=== PATIENT | female | born 1995 | race Caucasian/White ===

== ENCOUNTER 2017-03-10 13:15 | Emergency (ER) | payer SELFPAY ==
[~2017-03-10] VITALS: Ht 167.6 cm; Wt 72.7 kg
[~2017-03-10 13:15] MED LIST: ALBU2.5V5 NEB; ALBU8.5H8 IH; AMOX500C PO; BENZ100C PO; CEPH-264 PO; ONDA4TAB7 PO; PRED50TA PO; PREN-2 PO
[2017-03-10 13:26] VITALS: BP 106/68
[2017-03-10] MEDS ORDERED: HYDR-971 PO (13:53)
[2017-03-10] MEDS ORDERED: AMOX-260 PO (13:53)
--- NOTE | 2017-03-10 13:53 | PHYS DOC ---
Past History Past Medical History: Asthma Past Surgical History: Other Smoking: Less than 1pk/day Alcohol Use: Occasionally Drug Use: None Adult General Chief Complaint Chief Complaint: DENTAL PROBLEM HPI HPI Patient is a 21-year-old female who complains of toothache. Her tooth had been bothering her some but starting yesterday her toothache became much more severe and kept her up during the night last night. She called her dentist's office and they weren't able to see her so she came in here. She had a root canal a while back and she knows they gave her amoxicillin and she wondered if she could have that again. She doesn't know the specific injury to this tooth but has a "hole in it". Review of Systems Review of Systems Constitutional: Denies fever or chills [] Neurologic: Toothache hurts all the way up the side of her nose and causes her to have a headache over her right eye Allergies Allergies Allergies Coded Allergies Type Severity Reaction Last Updated Verified shrimp Allergy Severe Hives 12/27/15 Yes Physical Exam Physical Exam Constitutional: Well developed, well nourished, no acute distress, non-toxic appearance. Alert, mentating normally. HENT: Normocephalic, atraumatic, bilateral external ears normal, oropharynx moist, no oral exudates, right maxillary canine has a cavity in the posterior aspect. Teeth are generally in good condition. There is no evidence of periapical abscess, no drainage. Nose normal. Eyes: conjunctiva normal, no discharge. [] Neck: Normal range of motion, no tenderness, no lymphadenopathy or masses, supple, no stridor. [] Skin: Warm, dry, no erythema, no rash. [] Neurologic: Alert and oriented X 3, normal motor function, normal sensory function, no focal deficits noted. [] Current Patient Data Vital Signs Vital Signs Date Time Temp Pulse Resp B/P (MAP) Pulse Ox O2 Delivery O2 Flow Rate FiO2 03/10/17 13:26 98.7 72 20 96 Room Air EKG EKG [] Radiology/Procedures Radiology/Procedures [] Course & Med Decision Making Course & Med Decision Making Pertinent Labs and Imaging studies reviewed. (See chart for details) 21-year-old female presents with a severe tooth pain. She has a tooth with a large cavity, by history her tooth pain is probably due to this cavity affecting the nerve. I urged her to see a dentist as soon as possible, advised her to call for an appointment as soon as she leaves the emergency department. Advised her we will not be giving her any more pain pills after today and that she really must see a dentist for definitive care. [] [place] Disclaimer Dragon Disclaimer This chart was dictated in whole or in part using Voice Recognition software in a busy, high-work load, and often noisy Emergency Department environment. It may contain unintended and wholly unrecognized errors or omissions. Departure Departure: Impression: Primary Impression: Pain due to dental caries Disposition: HOME, SELF-CARE Condition: STABLE Referrals: PCP,MERNA (PCP) Patient Instructions: Dental Pain, [id number] Additional Instructions: As we discussed, it's important that you call and get a dentist appointment for care of your tooth. Medicines prescribed today will only temporary relief, you need to see a dentist immediately. Scripts Hydrocodone Bit/Acetaminophen (NORCO 5-325 TABLET) 1 Each Tablet 1-2 TAB PO Q4-6HRS for dental pain, #8 TAB Prov: DAVID SILVA MD 03/10/17 Amoxicillin (AMOXICILLIN) 250 Mg Capsule 1 CAP PO TID for dental, #21 CAP Prov: DAVID SILVA MD 03/10/17 DAVID SILVA MD March 10, 2017 13:53
== END 2017-03-10 14:04 | disposition home or self-care (01) ==
LOC: ER 13:15
DX: K02.9 Dental caries, unspecified (principal); J45.909 Unspecified asthma, uncomplicated; F17.200 Nicotine dependence, unspecified, uncomplicated; Z91.013 Allergy to seafood
CPT/HCPCS: 99283

== ENCOUNTER 2017-04-28 19:25 | Emergency (ER) | payer SELFPAY ==
[~2017-04-28] VITALS: Ht 167.6 cm; Wt 69.1 kg
[~2017-04-28 19:25] MED LIST changes: +AMOX-260 PO; +HYDR-971 PO
[2017-04-28 19:37] VITALS: BP 118/63
--- NOTE | 2017-04-28 20:17 | PHYS DOC ---
Past History Past Medical History: Asthma Past Surgical History: Other Smoking: Less than 1pk/day Alcohol Use: Rarely Drug Use: None Adult General Chief Complaint Chief Complaint: ABDOMINAL PAIN HPI HPI Patient is a 21 year old female who presents with complaint of upper abdominal pain. Patient states that she has been having pain off and on for the last 3-4 weeks but states that over the past week it has become more intense and more frequent. Patient states that her pain stays in the upper middle portion of her abdomen. Patient states that she often is awoken at nighttime due to the pain. Patient states that the pain is sharp. Patient rates her pain to me on my evaluation is 8 out of 10. Patient denies any associated nausea, vomiting, fever , or change in stooling. Patient states that she does not know when her last menstrual period took place that she is currently on control. The patient has tried taking ibuprofen for symptoms with no relief. Patient has had similar pain in the past. Patient states that she receive medical evaluation but did not receive an answer as to what was causing her pain. She was given pain medication which seemed to help it go away at that time. Review of Systems Review of Systems Constitutional: Denies fever or chills [] Eyes: Denies change in visual acuity, redness, or eye pain [] HENT: Denies nasal congestion or sore throat [] Respiratory: Denies cough or shortness of breath [] Cardiovascular: Denies chest pain or edema [] GI: Abdominal pain, denies nausea, vomiting, bloody stools or diarrhea [] : Denies dysuria or hematuria [] Musculoskeletal: Denies back pain or joint pain [] Integument: Denies rash or skin lesions [] Neurologic: Denies headache, focal weakness or sensory changes [] Current Medications Current Medications Current Medications Medications (Trade) Dose Ordered Sig/Len Start Time Stop Time Status Last Admin Dose Admin Acetaminophen/ Hydrocodone Bitart (Lortab 5/325) 1 tab 1X ONCE 04/28/17 20:30 04/28/17 20:31 Dicyclomine HCl (Bentyl) 20 mg 1X ONCE 04/28/17 20:30 04/28/17 20:31 Famotidine (Pepcid) 20 mg 1X ONCE 04/28/17 20:30 04/28/17 20:31 Allergies Allergies Allergies Coded Allergies Type Severity Reaction Last Updated Verified shrimp Allergy Severe Hives 12/27/15 Yes Physical Exam Physical Exam Constitutional: Well developed, well nourished, no acute distress, non-toxic appearance. [] HENT: Normocephalic, atraumatic, bilateral external ears normal, oropharynx moist, no oral exudates, nose normal. [] Eyes: PERRLA, EOMI, conjunctiva normal, no discharge. [] Neck: Normal range of motion, no tenderness, supple, no stridor. [] Cardiovascular:Heart rate regular rhythm, no murmur [] Lungs & Thorax: Bilateral breath sounds clear to auscultation [] Abdomen: Bowel sounds normal, soft, mild midepigastric tenderness to palpation with no guarding or rebound tenderness, negative Stoner sign, no tenderness over McBurney's site, no masses, no pulsatile masses. [] Skin: Warm, dry, no erythema, no rash. [] Back: No tenderness, no CVA tenderness. [] Extremities: No tenderness, no cyanosis, no clubbing, ROM intact, no edema. [] Neurologic: Alert and oriented X 3, normal motor function, normal sensory function, no focal deficits noted. [] Current Patient Data Vital Signs Vital Signs Date Time Temp Pulse Resp B/P (MAP) Pulse Ox O2 Delivery O2 Flow Rate FiO2 04/28/17 19:37 98.7 85 20 96 Room Air Lab Results Laboratory Tests Test 04/28/17 20:18 04/28/17 20:29 White Blood Count 7.3 x10^3/uL Red Blood Count 4.99 x10^6/uL Hemoglobin 14.0 g/dL Hematocrit 41.7 % Mean Corpuscular Volume 84 fL Mean Corpuscular Hemoglobin 28 pg Mean Corpuscular Hemoglobin Concent 34 g/dL Red Cell Distribution Width 13.2 % Platelet Count 208 x10^3/uL Neutrophils (%) (Auto) 41 % Lymphocytes (%) (Auto) 39 % Monocytes (%) (Auto) 6 % Eosinophils (%) (Auto) 12 % Basophils (%) (Auto) 1 % Neutrophils # (Auto) 3.0 x10^3uL Lymphocytes # (Auto) 2.8 x10^3/uL Monocytes # (Auto) 0.4 x10^3/uL Eosinophils # (Auto) 0.9 x10^3/uL Basophils # (Auto) 0.1 x10^3/uL Urine Collection Type Unknown Urine Color Yellow Urine Clarity Hazy Urine pH 5.5 Urine Specific [place] >=1.030 Urine Protein 30 mg/dl Urine Glucose (UA) Neg mg/dL Urine Ketones (Stick) Trace mg/dL Urine Blood Trace Urine Nitrite Neg Urine Bilirubin Neg Urine Urobilinogen Dipstick 0.2 mg/dL Urine Leukocyte Esterase Neg Urine RBC 3-5 /HPF Urine WBC 5-10 /HPF Urine Squamous Epithelial Cells Many /LPF Urine Bacteria Few /HPF Urine Hyaline Casts Few /HPF Urine Mucus Marked /LPF Sodium Level 144 mmol/L Potassium Level 3.6 mmol/L Chloride Level 108 mmol/L Carbon Dioxide Level 28 mmol/L Anion Gap 8 Blood Urea Nitrogen 9 mg/dL Creatinine 0.7 mg/dL Estimated GFR (Cockcroft-Gault) 104.6 BUN/Creatinine Ratio 13 Glucose Level 99 mg/dL Calcium Level 8.3 mg/dL Total Bilirubin 0.3 mg/dL Aspartate Amino Transf (AST/SGOT) 14 U/L Alanine Aminotransferase (ALT/SGPT) 20 U/L Alkaline Phosphatase 80 U/L Total Protein 7.3 g/dL Albumin 3.8 g/dL Albumin/Globulin Ratio 1.1 Bedside Urine HCG, Qualitative hcg negative Current Medications Medications (Trade) Dose Ordered Sig/Len Route PRN Reason Start Time Stop Time Status Last Admin Dose Admin Acetaminophen/ Hydrocodone Bitart (Lortab 5/325) 1 tab 1X ONCE PO 04/28/17 20:30 04/28/17 20:31 DC 04/28/17 20:30 Dicyclomine HCl (Bentyl) 20 mg 1X ONCE PO 04/28/17 20:30 04/28/17 20:31 DC 04/28/17 20:30 Famotidine (Pepcid) 20 mg 1X ONCE PO 04/28/17 20:30 04/28/17 20:31 DC 04/28/17 20:30 EKG EKG Not performed [] Radiology/Procedures Radiology/Procedures Not performed [] Course & Med Decision Making Course & Med Decision Making Pertinent Labs and Imaging studies reviewed. (See chart for details) The patient was given Bentyl, [place], and Pepcid in the emergency department. Patient's lab work is unremarkable with the exception of concentrated urine representing likely mild dehydration. The patient's symptoms have improved at this time. The patient does not appear to have clinical or lab evidence of acute surgical process of the abdomen which would include cholecystitis or appendicitis. The patient's source of complaint is likely intraluminal and gastritis versus peptic ulcer disease remain in the differential. The patient will continue on Pepcid, Bentyl, and Manchester for treatment of symptoms. I have referred the patient to Dr. Garcia of gastroenterology for follow-up in one to 2 weeks if symptoms persist. Advised return to emergency department for any worsening symptoms. Patient voiced understanding and in agreement with treatment plan. Dragon Disclaimer Dragon Disclaimer This chart was dictated in whole or in part using Voice Recognition software in a busy, high-work load, and often noisy Emergency Department environment. It may contain unintended and wholly unrecognized errors or omissions. Departure Departure: Impression: Primary Impression: Abdominal pain Disposition: HOME, SELF-CARE Condition: IMPROVED Referrals: PCPMERNA (PCP) MARION GARCIA MD Patient Instructions: Abdominal Pain (Nonspecific) Additional Instructions: Follow-up with Dr. Garcia of gastroenterology in 1-2 weeks if symptoms have not improved. Return to the emergency department for any worsening symptoms. Scripts Dicyclomine Hcl (BENTYL) 10 Mg Capsule 1 CAP PO TID, #90 CAP 0 Refills Prov: IRWIN MILLER MD 04/28/17 Famotidine (PEPCID) 20 Mg Tablet 1 TAB PO BID, #30 TAB 0 Refills Prov: IRWIN MILLER MD 04/28/17 Hydrocodone Bit/Acetaminophen (NORCO 5-325 TABLET) 1 Each Tablet 1 TAB PO Q4-6HRS Y for PAIN, #20 TAB Prov: IRWIN MILLER MD 04/28/17 Problem Qualifiers Primary Impression: Abdominal pain Abdominal location: epigastric Qualified Codes: R10.13 - Epigastric pain IRWIN MILLER MD Apr 28, 2017 20:17
[2017-04-28] MEDS ORDERED: HYDROcodone/APAP 5/325MG 1 TAB TABLET PO ONE (20:30)
[2017-04-28] MEDS ORDERED: FAMOTIDINE 20 MG TABLET PO ONE (20:30)
[2017-04-28] MEDS ORDERED: DICYCLOMINE HCL 20 MG TABLET PO ONE (20:30)
[2017-04-28 20:36] LABS: BASO # 0.1 x10^3/uL (0.0-0.2); BASO % 1 % (0-3); EOS # 0.9 x10^3/uL (0.0-0.7); EOS % 12 % (0-3); HEMATOCRIT 41.7 % (36.0-47.0); LYMPH # 2.8 x10^3/uL (1.0-4.8); LYMPH % 39 % (24-48); MEAN CORPUSCULAR HEMOGLOBIN 28 pg (25-35); MEAN CORPUSCULAR HGB CONC 34 g/dL (31-37); MEAN CORPUSCULAR VOLUME 84 fL (79-100); MONO # 0.4 x10^3/uL (0.0-1.1); MONO % 6 % (0-9); NEUT % 41 % (31-73); PLATELET COUNT 208 x10^3/uL (140-400); RED BLOOD COUNT 4.99 x10^6/uL (3.50-5.40); RED CELL DISTRIBUTION WIDTH 13.2 % (11.5-14.5); WHITE BLOOD COUNT 7.3 x10^3/uL (4.0-11.0)
[2017-04-28 20:54] LABS: ALBUMIN 3.8 g/dL (3.4-5.0); ALBUMIN/GLOBULIN RATIO 1.1 (1.0-1.7); CALCIUM 8.3 mg/dL (8.5-10.1); CREATININE 0.7 mg/dL (0.6-1.0); GFR 104.6; POTASSIUM 3.6 mmol/L (3.5-5.1); TOTAL BILIRUBIN 0.3 mg/dL (0.2-1.0); TOTAL PROTEIN 7.3 g/dL (6.4-8.2)
[2017-04-28 21:07] LABS: BILIRUBIN,URINE NEG (NEG); CLARITY,URINE HAZY; COLOR,URINE YELLOW; GLUCOSE,URINE NEG (NEG); NITRITE,URINE NEG (NEG); UROBILINOGEN,URINE 0.2 mg/dL (0.2 mg/dL)
[2017-04-28 21:08] LABS: BACTERIA,URINE FEW /HPF (0-FEW); HYALINE CASTS, URINE FEW /HPF
[2017-04-28 21:09] LABS: SQUAMOUS EPITHELIAL CELL,UR MANY /LPF
[2017-04-28] MEDS ORDERED: DICY10CA53 PO (21:18)
[2017-04-28] MEDS ORDERED: HYDR-971 PO (21:18)
[2017-04-28] MEDS ORDERED: FAMO-63 PO (21:18)
== END 2017-04-28 21:40 | disposition home or self-care (01) ==
LOC: ER 19:25
DX: R10.13 Epigastric pain (principal); R10.10 Upper abdominal pain, unspecified; J45.909 Unspecified asthma, uncomplicated; F17.200 Nicotine dependence, unspecified, uncomplicated; Z91.013 Allergy to seafood
CPT/HCPCS: 36415; 80053; 81001; 81025; 85027; 87086; 99284

== ENCOUNTER 2017-12-04 10:21 | Emergency (ER) | payer MEDICAID ==
[~2017-12-04] VITALS: Ht 320 cm; Wt 69.1 kg
[~2017-12-04 10:21] MED LIST changes: +DICY10CA53 PO; +FAMO-63 PO
[2017-12-04 10:31] VITALS: BP 128/75
[2017-12-04] MEDS ORDERED: LIDO:MAALOX 1:1 20 ML SINGLE DOSE PO ONE (11:30)
--- NOTE | 2017-12-04 12:31 | PHYS DOC ---
General Chief Complaint: ABDOMINAL PAIN Stated Complaint: UPPER ABDOM PAIN Time Seen by MD: 11:07 Source: patient Exam Limitations: no limitations Problems: History of Present Illness Initial Comments Patient is a 22-year-old female who comes to the ED complaining of abdominal pain. Patient states that immediately prior to arrival she was at work and a 1 slice of pizza. She states that she developed severe sudden onset epigastric pain described as burning. She states that she had some burping and symptoms consistent with prior GERD issues. She began coughing and had one episode of emesis. She left work and came to the ED for evaluation. On arrival patient vital signs are stable and appears to be in no apparent distress, GI cocktail ordered. No fever chills sweats or body aches, no blood noted in the emesis and no bowel symptoms. Patient states that she had an EGD this past year with mild GERD and was advised to take Pepcid. Patient states that she has not been taking Pepcid, she had been doing well avoiding sodas and fast food until last night when she had some sodas. Symptoms are identical to prior GERD symptoms. Timing/Duration: other Severity: severe Modifying Factors: worse with eating Associated Symptoms: other Allergies: Coded Allergies: shrimp (Verified Allergy, Severe, Hives, 12/27/15) Past Medical History Medical History: GERD Surgical History: noncontributory Family History Significant Family History: no pertinent family hx Social History Smoker: non-smoker Alcohol: rarely Drugs: none Review of Systems Constitutional: denies chills, denies fever, denies malaise Respiratory: denies cough, denies shortness of breath Cardiovascular: denies chest pain, denies palpitations, denies syncope Gastrointestinal: see HPI Genitourinary: denies dysuria, denies frequency, denies hematuria Musculoskeletal: denies back pain, denies joint pain, denies neck pain Psychiatric/Neurological: denies headache, denies numbness, denies paresthesia Hematologic/Lymphatic: denies blood clots, denies easy bleeding, denies easy bruising Physical Exam General Appearance: WD/WN, no apparent distress Ear, Nose, Throat: hearing grossly normal, normal ENT inspection Neck: non-tender, supple Respiratory: normal breath sounds, no respiratory distress Cardiovascular: normal peripheral pulses, regular rate, rhythm Gastrointestinal: soft (nondistended, epigastric tenderness to palpation no rebound guarding or masses, bowel sounds are normal negative Stoner negative McBurney) Rectal: deferred Back: no CVA tenderness, no vertebral tenderness Extremities: non-tender, normal inspection 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 I found her to be sleeping on the exam table, when I woke her she states that GI cocktail had not helped. Physical exam reveals no further indication for emergent imaging or lab workup. I advised the patient we would observe her for a short time longer to see if new symptoms develop. Pepcid 20 mg and Protonix 40 mg given by mouth Departure Disposition: 01 HOME, SELF-CARE Diagnosis: GERD gastritis, posttussive emesis Condition: GOOD Patient Instructions: Diet for Gastroesophageal Reflux Disease, Adult, Easy-to- Read, Gastroesophageal Reflux Disease, Adult, [id number] Additional Instructions: Please review the patient education material was given by ED staff. Observe strict GERD dietary and lifestyle precautions. [id number] Pepcid twice daily for 2 weeks. [id number] omeprazole twice daily for 1 month. Follow-up with your doctor in 2 weeks for recheck. Return to ED with new or changing symptoms. GARETH STONE DO Dec 04, 2017 12:31
[2017-12-04] MEDS ORDERED: PANTOPRAZOLE 40 MG TABLET. PO ONE (13:00)
[2017-12-04] MEDS ORDERED: FAMOTIDINE 20 MG TABLET PO ONE (13:00)
== END 2017-12-04 13:15 | disposition home or self-care (01) ==
LOC: ER 10:21
DX: K29.70 Gastritis, unspecified, without bleeding (principal); K21.9 Gastro-esophageal reflux disease without esophagitis; Z91.013 Allergy to seafood
CPT/HCPCS: 99284

== ENCOUNTER 2018-01-22 18:22 | Emergency (ER) | payer MEDICAID ==
[~2018-01-22] VITALS: Ht 320 cm; Wt 69.1 kg
[2018-01-22 18:37] VITALS: BP 111/64
[2018-01-22 18:56] LABS: BILIRUBIN,URINE NEG (NEG); CLARITY,URINE HAZY; COLOR,URINE YELLOW; GLUCOSE,URINE NEG (NEG); NITRITE,URINE NEG (NEG); UROBILINOGEN,URINE 0.2 mg/dL (0.2 mg/dL)
[2018-01-22 18:57] LABS: BACTERIA,URINE FEW /HPF (0-FEW); SQUAMOUS EPITHELIAL CELL,UR MANY /LPF
--- NOTE | 2018-01-22 18:58 | ED.ADGEN ---
Past History Past Medical History: Asthma, GERD Past Surgical History: Other Smoking: Less than 1pk/day Alcohol Use: Rarely Drug Use: None Adult General Chief Complaint Chief Complaint fever, myalagias HPI HPI Patient is a 22 year old female who presents with 1 day of mild cough, myalgias , headache and now fever. Reports increased urinary frequency but denies dysuria. Denies vaginal discharge or bleeding, reports she is 5weeks 6 days by LMP. She has f/u with her radiologic technician in mid January and is taking vitamins. She reported earlier she has a pain in her left lower quadrant but it lasted for "a second" and then hasn't returned. No change in bowel movements, no active abdominal pain and it hasn't returned. She denies h/ o abdominal surgeries. She does take pepcid for chronic gerd. Review of Systems Review of Systems Constitutional: Fever Eyes: Denies change in visual acuity, redness, or eye pain [] HENT: Denies nasal congestion or sore throat [] Respiratory: reports cough, denies shortness of breath [] Cardiovascular: denies chest pain, no edema GI: Denies current abdominal pain, nausea, vomiting, bloody stools or diarrhea [ ] : Denies dysuria or hematuria , reports increased urinary frequency Musculoskeletal: Denies back pain or joint pain [] Integument: Denies rash or skin lesions [] Neurologic: reports headache, denies focal weakness or sensory changes [] Current Medications Current Medications Current Medications Medications (Trade) Dose Ordered Sig/Len Start Time Stop Time Status Last Admin Dose Admin Acetaminophen (Tylenol) 1,000 mg 1X ONCE 01/22/18 19:15 01/22/18 19:16 DC 01/22/18 18:50 1,000 MG Oseltamivir Phosphate (Tamiflu) 75 mg 1X ONCE 01/22/18 19:45 01/22/18 19:46 DC 01/22/18 19:28 75 MG Potassium Chloride (Klor-Con) 40 meq 1X ONCE 01/22/18 19:45 01/22/18 19:46 DC 01/22/18 19:26 40 MEQ Sodium Chloride 1,000 ml @ 1,000 mls/hr 1X ONCE 01/22/18 19:15 01/22/18 20:14 01/22/18 18:40 1,000 MLS/HR Allergies Allergies Allergies Coded Allergies Type Severity Reaction Last Updated Verified shrimp Allergy Severe Hives 12/27/15 Yes Physical Exam Physical Exam Constitutional: Well developed, well nourished, no acute distress, non-toxic appearance. smiling HENT: Normocephalic, atraumatic, bilateral external ears normal, oropharynx moist, no oral exudates, nose normal. [] Eyes: PERRLA, EOMI, conjunctiva normal, no discharge. [] Neck: Normal range of motion, no tenderness, supple, no stridor. no nuchal rigidity Cardiovascular:Heart rate tachy with regular rhythm, no murmur [] Lungs & Thorax: Bilateral breath sounds clear to auscultation, no wheeze or crackles, good air movement Abdomen: Bowel sounds normal, soft, no tenderness, no masses, no pulsatile masses.no guarding or peritoneal signs, nondistended, no adnexal ttp Skin: Warm, dry, no erythema, no rash. [] Back: No tenderness, no CVA tenderness. [] Extremities: No tenderness, no cyanosis, no clubbing, ROM intact, no edema. [] Neurologic: Alert and oriented X 3, normal motor function, normal sensory function, no focal deficits noted. [] Psychologic: Affect normal, judgement normal, mood normal. [] Current Patient Data Vital Signs Vital Signs Date Time Temp Pulse Resp B/P (MAP) Pulse Ox O2 Delivery O2 Flow Rate FiO2 01/22/18 19:27 102 20 100 Room Air 01/22/18 18:37 100.7 Lab Results Laboratory Tests Test 01/22/18 18:30 01/22/18 18:31 01/22/18 18:40 01/22/18 19:11 White Blood Count 8.9 x10^3/uL (4.0-11.0) Red Blood Count 4.78 x10^6/uL (3.50-5.40) Hemoglobin 13.8 g/dL (12.0-15.5) Hematocrit 41.7 % (36.0-47.0) Mean Corpuscular Volume 87 fL (79-100) Mean Corpuscular Hemoglobin 29 pg (25-35) Mean Corpuscular Hemoglobin Concent 33 g/dL (31-37) Red Cell Distribution Width 13.4 % (11.5-14.5) Platelet Count 207 x10^3/uL (140-400) Neutrophils (%) (Auto) 78 % (31-73) H Lymphocytes (%) (Auto) 7 % (24-48) L Monocytes (%) (Auto) 10 % (0-9) H Eosinophils (%) (Auto) 4 % (0-3) H Basophils (%) (Auto) 1 % (0-3) Neutrophils # (Auto) 7.0 x10^3uL (1.8-7.7) Lymphocytes # (Auto) 0.7 x10^3/uL (1.0-4.8) L Monocytes # (Auto) 0.9 x10^3/uL (0.0-1.1) Eosinophils # (Auto) 0.4 x10^3/uL (0.0-0.7) Basophils # (Auto) 0.1 x10^3/uL (0.0-0.2) Sodium Level 136 mmol/L (136-145) Potassium Level 3.2 mmol/L (3.5-5.1) L Chloride Level 101 mmol/L (98-107) Carbon Dioxide Level 23 mmol/L (21-32) Anion Gap 12 (6-14) Blood Urea Nitrogen 8 mg/dL (7-20) Creatinine 0.8 mg/dL (0.6-1.0) Estimated GFR (Cockcroft-Gault) 88.9 Glucose Level 158 mg/dL (70-99) H Calcium Level 8.6 mg/dL (8.5-10.1) Urine Collection Type Unknown Urine Color Yellow Urine Clarity Hazy Urine pH 5.5 Urine Specific [place] >=1.030 Urine Protein 30 mg/dl (NEG-TRACE) Urine Glucose (UA) Neg mg/dL (NEG) Urine Ketones (Stick) 80 mg/dL (NEG) Urine Blood Neg (NEG) Urine Nitrite Neg (NEG) Urine Bilirubin Neg (NEG) Urine Urobilinogen Dipstick 0.2 mg/dL (0.2 mg/dL) Urine Leukocyte Esterase Small (NEG) Urine RBC 1-2 /HPF (0-2) Urine WBC 11-20 /HPF (0-4) Urine Squamous Epithelial Cells Many /LPF Urine Bacteria Few /HPF (0-FEW) Urine Mucus Marked /LPF Influenza Type A (Rapid) Negative (NEGATIVE) Influenza Type B (Rapid) Positive (NEGATIVE) Lactic Acid Level 1.4 mmol/L (0.4-2.0) EKG EKG [] Radiology/Procedures Radiology/Procedures [] Course & Med Decision Making Course & Med Decision Making Pertinent Labs and Imaging studies reviewed. (See chart for details) Pt meets SIRS and lactate ordered with blood cultures, IV fluid bolus, labs/ua. Pt does not have any abdominal pain on exam or at this time. The abdominal pain she reported was earlier, fleeting and only lasted seconds. The cause is more likely due to a viral illness as pt is coughing and has headache. Rapid flu ordered. +flu B, Tamiflu given in ED. 40meq KCl given for hypokalemia. Pt's HR 100 after 1 L NS. Lactate 1.4. pt has mild uti, pt agreeable to dc with return precautions given, f/u with PCP. RX for tamiflu and keflex given. Work note given. Final Impression Final Impression Influenza B UTI in Fever[] Problems: Dragon Disclaimer Dragon Disclaimer This electronic medical record was generated, in whole or in part, using a voice recognition dictation system. LIAT VALLECILLO MD Jan 22, 2018 18:58
[2018-01-22 19:00] LABS: BASO # 0.1 x10^3/uL (0.0-0.2); BASO % 1 % (0-3); EOS # 0.4 x10^3/uL (0.0-0.7); EOS % 4 % (0-3); HEMATOCRIT 41.7 % (36.0-47.0); HEMOGLOBIN 13.8 g/dL (12.0-15.5); LYMPH # 0.7 x10^3/uL (1.0-4.8); LYMPH % 7 % (24-48); MEAN CORPUSCULAR HEMOGLOBIN 29 pg (25-35); MEAN CORPUSCULAR HGB CONC 33 g/dL (31-37); MEAN CORPUSCULAR VOLUME 87 fL (79-100); MONO # 0.9 x10^3/uL (0.0-1.1); MONO % 10 % (0-9); NEUT % 78 % (31-73); PLATELET COUNT 207 x10^3/uL (140-400); RED BLOOD COUNT 4.78 x10^6/uL (3.50-5.40); RED CELL DISTRIBUTION WIDTH 13.4 % (11.5-14.5); WHITE BLOOD COUNT 8.9 x10^3/uL (4.0-11.0)
[2018-01-22 19:05] LABS: CALCIUM 8.6 mg/dL (8.5-10.1); CREATININE 0.8 mg/dL (0.6-1.0); GFR 88.9; POTASSIUM 3.2 mmol/L (3.5-5.1)
[2018-01-22 19:13] LABS: INFLUENZA A PATIENT NEGATIVE (NEGATIVE); INFLUENZA B PATIENT POSITIVE (NEGATIVE)
[2018-01-22] MEDS ORDERED: ACETAMINOPHEN 500 MG TABLET PO ONE (19:15)
[2018-01-22] MEDS ORDERED: IV NORMAL SALINE 1,000ML 1,000 ML IV ONE (19:15)
[2018-01-22] MEDS ORDERED: OSEL75CA PO (19:31)
[2018-01-22] MEDS ORDERED: CEPH-264 PO (19:31)
[2018-01-22] MEDS ORDERED: POTASSIUM CHLORIDE 20 MEQ TABLET.ER. PO ONE (19:45)
[2018-01-22] MEDS ORDERED: OSELTAMIVIR 75 MG CAPSULE PO ONE (19:45)
== END 2018-01-22 19:34 | disposition home or self-care (01) ==
LOC: ER 18:22
DX: O99.511 Diseases of the respiratory system complicating pregnancy, first trimester (principal); Z3A.01 Less than 8 weeks gestation of pregnancy; O23.41 Unspecified infection of urinary tract in pregnancy, first trimester; E87.6 Hypokalemia; J45.909 Unspecified asthma, uncomplicated; O99.331 Smoking (tobacco) complicating pregnancy, first trimester; Z91.013 Allergy to seafood
CPT/HCPCS: 36415; 80048; 81001; 83605; 85025; 87040; 87086; 87804; 96360; 99284-25; J7030

== ENCOUNTER 2018-03-18 00:35 | Emergency (ER) | payer MEDICAID ==
[~2018-03-18] VITALS: Ht 320 cm; Wt 69.1 kg
[~2018-03-18 00:35] MED LIST changes: +OSEL75CA PO
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
--- NOTE | 2018-03-18 02:33 | RAD ---
INDICATION: Trauma COMPARISON: None. TECHNIQUE: Axial CT images obtained through the head and cervical spine without intravenous contrast. One or more of the following individualized dose reduction techniques were utilized for this examination: 1. Automated exposure control; 2. Adjustment of the mA and/or kV according to patient size; 3. Use of iterative reconstruction technique. FINDINGS: Head: No intracranial hemorrhage. No midline shift. Basal cisterns patent. Ventricles and sulci are unremarkable. No displaced calvarial fracture is seen. Cervical spine: No definite acute fracture or dislocation. No perivertebral hematoma. IMPRESSION: 1. No acute intracranial hemorrhage. 2. No definite cervical spine fracture. 3. There are some prominent lymph nodes within the neck measuring up to about 10 mm short axis. Electronically signed by: Connor Powell MD (03/18/2018 2:31 AM) [facility]
[2018-03-18 03:30] VITALS: BP 112/70
[2018-03-18 03:42] LABS: BILIRUBIN,URINE NEG (NEG); CLARITY,URINE CLEAR; COLOR,URINE YELLOW; GLUCOSE,URINE NEG (NEG)
[2018-03-18 03:43] LABS: BACTERIA,URINE FEW /HPF (0-FEW); NITRITE,URINE NEG (NEG); RBC,URINE 0 /HPF (0-2); SQUAMOUS EPITHELIAL CELL,UR FEW /LPF; UROBILINOGEN,URINE 0.2 mg/dL (0.2 mg/dL)
[2018-03-18 03:44] LABS: AMPHETAMINE/METHAMPHETAMINE NEG (NEG); BARBITURATES NEG (NEG); BENZODIAZEPINES NEG (NEG); CANNABINOIDS NEG (NEG); COCAINE NEG (NEG); METHADONE NEG (NEG); OPIATES NEG (NEG); PHENCYCLIDINE NEG (NEG)
== END 2018-03-18 03:34 | disposition home or self-care (01) ==
LOC: ER 00:35
DX: O9A.211 Injury, poisoning and certain other consequences of external causes complicating pregnancy, first trimester (principal); S09.90XA Unspecified injury of head, initial encounter; S09.91XA Unspecified injury of ear, initial encounter; O99.511 Diseases of the respiratory system complicating pregnancy, first trimester; O99.611 Diseases of the digestive system complicating pregnancy, first trimester; K21.9 Gastro-esophageal reflux disease without esophagitis; J45.909 Unspecified asthma, uncomplicated; O99.331 Smoking (tobacco) complicating pregnancy, first trimester; Z91.013 Allergy to seafood; Z3A.13 13 weeks gestation of pregnancy; Y04.0XXA Assault by unarmed brawl or fight, initial encounter; Y93.89 Activity, other specified; Y99.8 Other external cause status; Y92.89 Other specified places as the place of occurrence of the external cause
CPT/HCPCS: 36415; 70450; 72125; 80307; 81001; 99285-25; G0479

== ENCOUNTER 2018-06-29 20:46 | Emergency (ER) | payer SELFPAY ==
[~2018-06-29] VITALS: Ht 165.1 cm; Wt 78.1 kg
[2018-06-29 20:56] VITALS: BP 112/62
--- NOTE | 2018-06-29 21:06 | ED.ADGEN ---
Past History Past Medical History: Asthma, GERD Past Surgical History: No Surgical History Smoking: Less than 1pk/day Alcohol Use: Occasionally Drug Use: None Adult General Chief Complaint Chief Complaint CP SOB HPI HPI Patient's is 28 weeks and had onset of chest tightness and pain 3 days ago. The pain has been constant associated with shortness of breath worse when she is laying flat. Today, her chest tightness and shortness breath count so severe she can restart for evaluation. Senokot productive of clear sputum she denies any fevers. She has history of asthma and uses inhaler. She stopped smoking 13 weeks ago. Review of Systems Review of Systems Constitutional: Denies fever or chills Eyes: Denies change in visual acuity, redness, or eye pain HENT: Denies nasal congestion or sore throat Respiratory: With shortness of breath Cardiovascular: With CP and SOB GI: Denies abdominal pain, nausea, vomiting, bloody stools or diarrhea : Denies dysuria or hematuria Musculoskeletal: Denies back pain or joint pain Integument: Denies rash or skin lesions Neurologic: Denies headache, focal weakness or sensory changes Endocrine: Denies polyuria or polydipsia All other systems were reviewed and found to be within normal limits, except as documented in this note. Current Medications Current Medications Current Medications Medications (Trade) Dose Ordered Sig/Len Start Time Stop Time Status Last Admin Dose Admin Albuterol/ Ipratropium (Duoneb) 3 ml 1X ONCE 06/29/18 21:15 06/29/18 21:16 DC 06/29/18 21:15 3 ML Famotidine (Pepcid Vial) 20 mg STK-MED ONCE 06/29/18 22:07 06/29/18 22:08 DC Info (Do NOT chart on this entry -- for MONITORING) 1 each PRN DAILY PRN 06/29/18 23:15 06/30/18 01:18 DC Iohexol (Omnipaque 300 Mg/ml) 75 ml 1X ONCE 06/29/18 23:15 06/29/18 23:16 DC 06/29/18 23:42 75 ML Multi-Ingredient Mouthwash/Gargle (Gi Cocktail) 20 ml 1X ONCE 06/29/18 22:00 06/29/18 22:01 DC Prednisone (Prednisone) 40 mg 1X ONCE 06/30/18 01:00 06/30/18 01:04 DC Sodium Chloride 1,000 ml @ 1,000 mls/hr 1X ONCE 06/30/18 00:15 06/30/18 01:14 DC 06/30/18 00:14 1,000 MLS/HR Allergies Allergies Allergies Coded Allergies Type Severity Reaction Last Updated Verified shrimp Allergy Severe Hives 12/27/15 Yes Physical Exam Physical Exam Constitutional: Well developed, well nourished, no acute distress, non-toxic appearance. HENT: Normocephalic, atraumatic, bilateral external ears normal, oropharynx moist, no oral exudates, nose normal. Eyes: PERRLA, EOMI, conjunctiva normal, no discharge. Neck: Normal range of motion, no tenderness, supple, no stridor. Cardiovascular:Heart rate regular rhythm, no murmur, S3 Lungs & Thorax: Bilateral breath sounds clear to auscultation, no wheezing or rales Abdomen: Bowel sounds normal, soft, no tenderness, no masses, no pulsatile masses. Gravid with heart rate of 137 Skin: Warm, dry, no erythema, no rash. Back: No tenderness, no CVA tenderness. Extremities: No tenderness, no cyanosis, no clubbing, ROM intact, no edema. Neurologic: Alert and oriented X 3, normal motor function, normal sensory function, no focal deficits noted. Psychologic: Affect normal, judgement normal, mood normal. Current Patient Data Vital Signs Vital Signs Date Time Temp Pulse Resp B/P (MAP) Pulse Ox O2 Delivery O2 Flow Rate FiO2 06/29/18 20:56 98.2 96 18 95 Room Air Lab Results Laboratory Tests Test 06/29/18 20:48 06/29/18 21:33 Urine Collection Type Unknown Urine Color Straw Urine Clarity Hazy Urine pH 7.0 Urine Specific Una <=1.005 Urine Protein Neg (NEG-TRACE) Urine Glucose (UA) Neg mg/dL (NEG) Urine Ketones (Stick) Neg mg/dL (NEG) Urine Blood Neg (NEG) Urine Nitrite Neg (NEG) Urine Bilirubin Neg (NEG) Urine Urobilinogen Dipstick 0.2 mg/dL (0.2 mg/dL) Urine Leukocyte Esterase Small (NEG) Urine RBC 0 /HPF (0-2) Urine WBC Rare /HPF (0-4) Urine Squamous Epithelial Cells Few /LPF Urine Bacteria 0 /HPF (0-FEW) White Blood Count 14.9 x10^3/uL (4.0-11.0) H Red Blood Count 3.96 x10^6/uL (3.50-5.40) Hemoglobin 11.6 g/dL (12.0-15.5) L Hematocrit 34.2 % (36.0-47.0) L Mean Corpuscular Volume 86 fL (79-100) Mean Corpuscular Hemoglobin 29 pg (25-35) Mean Corpuscular Hemoglobin Concent 34 g/dL (31-37) Red Cell Distribution Width 13.2 % (11.5-14.5) Platelet Count 204 x10^3/uL (140-400) Neutrophils (%) (Auto) 71 % (31-73) Lymphocytes (%) (Auto) 16 % (24-48) L Monocytes (%) (Auto) 8 % (0-9) Eosinophils (%) (Auto) 5 % (0-3) H Basophils (%) (Auto) 1 % (0-3) Neutrophils # (Auto) 10.5 x10^3uL (1.8-7.7) H Lymphocytes # (Auto) 2.4 x10^3/uL (1.0-4.8) Monocytes # (Auto) 1.1 x10^3/uL (0.0-1.1) Eosinophils # (Auto) 0.7 x10^3/uL (0.0-0.7) Basophils # (Auto) 0.1 x10^3/uL (0.0-0.2) D-Dimer (Ifeoma) 1.08 mg/L (0.00-0.50) H Sodium Level 139 mmol/L (136-145) Potassium Level 3.5 mmol/L (3.5-5.1) Chloride Level 104 mmol/L (98-107) Carbon Dioxide Level 27 mmol/L (21-32) Anion Gap 8 (6-14) Blood Urea Nitrogen 8 mg/dL (7-20) Creatinine 0.8 mg/dL (0.6-1.0) Estimated GFR (Cockcroft-Gault) 88.9 BUN/Creatinine Ratio 10 (6-20) Glucose Level 100 mg/dL (70-99) H Calcium Level 8.8 mg/dL (8.5-10.1) Total Bilirubin 0.2 mg/dL (0.2-1.0) Aspartate Amino Transferase (AST) 14 U/L (15-37) L Alanine Aminotransferase (ALT) 20 U/L (14-59) Alkaline Phosphatase 88 U/L (46-116) Troponin I Quantitative < 0.017 ng/mL (0-0.055) Total Protein 7.2 g/dL (6.4-8.2) Albumin 2.9 g/dL (3.4-5.0) L Albumin/Globulin Ratio 0.7 (1.0-1.7) L Lipase 159 U/L (73-393) EKG EKG 21:21 ECG Normal sinus rhythm at 77 without acute changes with normal QRS morphology Radiology/Procedures Radiology/Procedures [address] [address] IMAGING REPORT Signed PATIENT: YELENA CLEANING ACCOUNT: [id number] : 1995 LOCATION: ER AGE: 22 SEX: F EXAM STATUS: REG ER ORD. PHYSICIAN: ALICIA MARTÍNEZ MD REASON: Chest pain, short of air. PROCEDURE: CHEST AP ONLY PROCEDURE: CHEST AP ONLY CLINICAL INDICATION: Chest pain, short of air. Patient , double shielded, consent signed COMPARISON: None FINDINGS: No pneumothorax identified. Cardiac and mediastinal contours unremarkable. No pulmonary consolidation or acute airspace disease. No acute osseous abnormalities identified. IMPRESSION: No pulmonary consolidation or acute airspace disease. Electronically signed by: Mayito Griffin DO (06/29/2018 10:54 PM) [facility] DICTATED AND SIGNED BY: MAYITO GRIFFIN DO DATE: 06/29/18 6026 CC: ALICIA MARTÍNEZ MD; PCP,NO ~ [address] [address] IMAGING REPORT Signed PATIENT: YELENA CLEANING ACCOUNT: [id number] : 1995 LOCATION: ER AGE: 22 SEX: F EXAM STATUS: REG ER ORD. PHYSICIAN: ALICIA MARTÍNEZ MD REASON: elevated D-dimer PROCEDURE: VENOUS LOWER EXT BILATERAL Ultrasound venous Doppler INDICATION:lt groin pain
chest tightness
elevated ddimer
28 weeks preg<BR TECHNIQUE: Grayscale, color Doppler and spectral waveform ultrasound images of the bilateral lower extremities deep veins obtained. COMPARISON: None FINDINGS: The interrogated deep veins are compressible and demonstrate evidence of blood flow with normal respiratory variation and response to augmentation. IMPRESSION: No sonographic evidence of acute DVT of the bilateral lower extremity deep veins. Electronically signed by: Mayito Griffin DO (06/29/2018 11:54 PM) [facility] DICTATED AND SIGNED BY: MAYITO GRIFFIN DO DATE: 06/29/18 3423 CC: ALICIA MARTÍNEZ MD; PCP,NO ~ [address] [address] IMAGING REPORT Signed PATIENT: YELENA CLEANING ACCOUNT: [id number] : 1995 LOCATION: ER AGE: 22 SEX: F EXAM STATUS: REG ER ORD. PHYSICIAN: ALICIA MARTÍNEZ MD REASON: Chest pain, short of air, cough, elevated d-dimer PROCEDURE: CT ANGIOGRAPHY CHEST PQRS Compliance Statement: One or more of the following individualized dose reduction techniques were utilized for this examination: 1. Automated exposure control 2. Adjustment of the mA and/or kV according to patient size 3. Use of iterative reconstruction technique CT CHEST WITH CONTRAST, PULMONARY ANGIOGRAM History: Chest pain, short of air, cough, elevated d-dimer. Hx: Asthma. Patient is 28 weeks . Comparison: None. Technique: Helical CT of the chest was performed after the administration of 75 cc Omnipaque 300 intravenous contrast according to PE protocol. Axial and coronal reconstructions were obtained. 3-D MIP images were constructed to better evaluate the pulmonary arteries. Findings: Pulmonary arteries are adequately opacified. There is no evidence of pulmonary embolism. There is no thoracic aortic dissection. There is no adenopathy in the chest. Cardiac size normal, no pericardial effusion. There is no pleural abnormality. The central airways are patent. Irregular opacities in the right lung apex may be due to scarring, image 15. Suggest attention on subsequent imaging. Lungs are otherwise clear. Visualized upper abdomen and bones are unremarkable. IMPRESSION: There is no CT evidence of pulmonary embolus. Electronically signed by: Andrade Doan MD (06/30/2018 12:14 AM) [facility] DICTATED AND SIGNED BY: ANDRADE DOAN MD DATE: 06/30/18 0007 CC: ALICIA MARTÍNEZ MD; PCP,NO ~ Course & Med Decision Making Course & Med Decision Making Emergency department course Patient presents with complaints of chest pressure worse with deep breathing and shortness of breath DDx-asthma exacerbation, GERD, pneumonia, pulmonary embolism 22:40 The patient was stable in the emergency department. She was given a DuoNeb treatment without relief of her chest discomfort or shortness breath. ECG and troponin showed no evidence acute coronary syndrome. Chest x-ray was unremarkable. There is no pneumonia or CHF. Patient was given Pepcid IV without relief of her symptoms. Dimer elevated Will do CTA chest to rule out PE. CTA chest was unremarkable. There was no PE, dissection or any acute pulmonary abnormality. Duplex dopplers of bilateral LE showed no evidence of DVT. The cause of the patient's symptoms are unclear at this time. She will be given empiric treatment for occult bronchospasm since she has asthma. I advised the patient to follow-up with her OB tomorrow for further evaluation. Final Impression Final Impression Clinicel Impression Chest pain Shortness of breath Asthma 28 weeks Jo Ann Disclaimer Jo Ann Disclaimer This electronic medical record was generated, in whole or in part, using a voice recognition dictation system. Departure Departure: Impression: Primary Impression: Chest pain Additional Impressions: SOB (shortness of breath) Asthma 28 weeks gestation of Disposition: 01 HOME, SELF-CARE Condition: STABLE Patient Instructions: Asthma, Adult, [id number], Chest Pain (Nonspecific), [id number], , Shortness of Breath, [id number] Additional Instructions: Follow-up with your OB Daisy Stoner CNM tomorrow for further evaluation [facility] [address] [place] [id number] If you develop worse pain, shortness of breath, fevers, lightheadedness, bleeding return to the emergency department immediately Scripts Albuterol Sulfate (PROAIR HFA INHALER) 8.5 Gm Hfa.aer.ad 1 PUFF INH PRN Q6HRS PRN for SHORTNESS OF BREATH for 20 Days, #1 INHALER 0 Refills Prov: ALICIA MARTÍNEZ MD 06/30/18 Prednisone (PREDNISONE) 20 Mg Tablet 2 TAB PO DAILY for 5 Days, #10 TAB Prov: ALICIA MARTÍNEZ MD 06/30/18 ALICIA MARTÍNEZ MD Jun 29, 2018 21:06
[2018-06-29] MEDS ORDERED: IPRATRPIUM/ALBUTEROL 0.5/2.5MG 3 ML NEBU. NEB ONE (21:15)
[2018-06-29 21:19] LABS: BACTERIA,URINE 0 /HPF (0-FEW); BILIRUBIN,URINE NEG (NEG); CLARITY,URINE HAZY; COLOR,URINE STRAW; GLUCOSE,URINE NEG (NEG); NITRITE,URINE NEG (NEG); RBC,URINE 0 /HPF (0-2); SQUAMOUS EPITHELIAL CELL,UR FEW /LPF; UROBILINOGEN,URINE 0.2 mg/dL (0.2 mg/dL); WBC,URINE RARE /HPF (0-4)
[2018-06-29 21:55] LABS: BASO # 0.1 x10^3/uL (0.0-0.2); BASO % 1 % (0-3); EOS # 0.7 x10^3/uL (0.0-0.7); EOS % 5 % (0-3); HEMATOCRIT 34.2 % (36.0-47.0); HEMOGLOBIN 11.6 g/dL (12.0-15.5); LYMPH # 2.4 x10^3/uL (1.0-4.8); LYMPH % 16 % (24-48); MEAN CORPUSCULAR HEMOGLOBIN 29 pg (25-35); MEAN CORPUSCULAR HGB CONC 34 g/dL (31-37); MEAN CORPUSCULAR VOLUME 86 fL (79-100); MONO # 1.1 x10^3/uL (0.0-1.1); MONO % 8 % (0-9); NEUT # 10.5 x10^3uL (1.8-7.7); NEUT % 71 % (31-73); PLATELET COUNT 204 x10^3/uL (140-400); RED BLOOD COUNT 3.96 x10^6/uL (3.50-5.40); RED CELL DISTRIBUTION WIDTH 13.2 % (11.5-14.5); WHITE BLOOD COUNT 14.9 x10^3/uL (4.0-11.0)
[2018-06-29] MEDS ORDERED: LIDO:MAALOX 1:1 20 ML SINGLE DOSE. PO ONE (22:00)
--- NOTE | 2018-06-29 22:00 | EKG ---
[address] [address] Test Date: 2018-06-29 Test Time: 21:19:47 Pat Name: YELENA CLEANING Department: Room: Gender: F Lead Systems Architect: : 1995 Requested By: ALICIA MARTÍNEZ Order Number: [id number] Reading MD: Dillan Arias Measurements Intervals Pool Rate: 77 P: 48 MO: 160 QRS: 41 QRSD: 80 T: 20 QT: 366 QTc: 416 Interpretive Statements SINUS RHYTHM Electronically Signed On 07-01-2018 13:08:08 CDT by Dillan Arias
[2018-06-29] MEDS ORDERED: FAMOTIDINE 20 MG/2 ML VIAL ONE (22:07)
[2018-06-29 22:08] LABS: ALBUMIN 2.9 g/dL (3.4-5.0); ALBUMIN/GLOBULIN RATIO 0.7 (1.0-1.7); CALCIUM 8.8 mg/dL (8.5-10.1); CREATININE 0.8 mg/dL (0.6-1.0); GFR 88.9; POTASSIUM 3.5 mmol/L (3.5-5.1); TOTAL BILIRUBIN 0.2 mg/dL (0.2-1.0); TOTAL PROTEIN 7.2 g/dL (6.4-8.2)
[2018-06-29] MEDS ORDERED: FAMOTIDINE 20 MG/2 ML VIAL IVP ONE (22:15)
--- NOTE | 2018-06-29 22:57 | RAD ---
PROCEDURE: CHEST AP ONLY CLINICAL INDICATION: Chest pain, short of air. Patient , double shielded, consent signed COMPARISON: None FINDINGS: No pneumothorax identified. Cardiac and mediastinal contours unremarkable. No pulmonary consolidation or acute airspace disease. No acute osseous abnormalities identified. IMPRESSION: No pulmonary consolidation or acute airspace disease. Electronically signed by: Mayito Griffin DO (06/29/2018 10:54 PM) [facility]
[2018-06-29] MEDS ORDERED: IOHEXOL 300 MG/ML 75 ML VIAL. IV ONE (23:15)
[2018-06-29] MEDS ORDERED: CONTRAST GIVEN MC PRN (23:15)
--- NOTE | 2018-06-29 23:58 | RAD ---
Ultrasound venous Doppler INDICATION:lt groin pain
chest tightness
elevated ddimer
28 weeks preg<BR TECHNIQUE: Grayscale, color Doppler and spectral waveform ultrasound images of the bilateral lower extremities deep veins obtained. COMPARISON: None FINDINGS: The interrogated deep veins are compressible and demonstrate evidence of blood flow with normal respiratory variation and response to augmentation. IMPRESSION: No sonographic evidence of acute DVT of the bilateral lower extremity deep veins. Electronically signed by: Mayito Griffin DO (06/29/2018 11:54 PM) [facility]
[2018-06-30] MEDS ORDERED: IV NORMAL SALINE 1,000ML 1,000 ML IV ONE (00:15)
--- NOTE | 2018-06-30 00:17 | RAD ---
PQRS Compliance Statement: One or more of the following individualized dose reduction techniques were utilized for this examination: 1. Automated exposure control 2. Adjustment of the mA and/or kV according to patient size 3. Use of iterative reconstruction technique CT CHEST WITH CONTRAST, PULMONARY ANGIOGRAM History: Chest pain, short of air, cough, elevated d-dimer. Hx: Asthma. Patient is 28 weeks . Comparison: None. Technique: Helical CT of the chest was performed after the administration of 75 cc Omnipaque 300 intravenous contrast according to PE protocol. Axial and coronal reconstructions were obtained. 3-D MIP images were constructed to better evaluate the pulmonary arteries. Findings: Pulmonary arteries are adequately opacified. There is no evidence of pulmonary embolism. There is no thoracic aortic dissection. There is no adenopathy in the chest. Cardiac size normal, no pericardial effusion. There is no pleural abnormality. The central airways are patent. Irregular opacities in the right lung apex may be due to scarring, image 15. Suggest attention on subsequent imaging. Lungs are otherwise clear. Visualized upper abdomen and bones are unremarkable. IMPRESSION: There is no CT evidence of pulmonary embolus. Electronically signed by: German Doan MD (06/30/2018 12:14 AM) [facility]
[2018-06-30] MEDS ORDERED: PRED20TA PO (01:00)
[2018-06-30] MEDS ORDERED: predniSONE 20 MG TABLET PO ONE (01:00)
[2018-06-30] MEDS ORDERED: ALBU8.5H8 INH (01:00)
== END 2018-06-30 01:18 | disposition home or self-care (01) ==
LOC: ER 20:46
DX: O99.512 Diseases of the respiratory system complicating pregnancy, second trimester (principal); J45.909 Unspecified asthma, uncomplicated; R07.89 Other chest pain; O99.613 Diseases of the digestive system complicating pregnancy, third trimester; K21.9 Gastro-esophageal reflux disease without esophagitis; O99.333 Smoking (tobacco) complicating pregnancy, third trimester; Z3A.28 28 weeks gestation of pregnancy; Z91.013 Allergy to seafood
CPT/HCPCS: 36415; 71045; 71275; 80053; 81001; 83690; 84484; 85025; 85379; 87086; 93005; 93970; 94640; 96374; 99285; J7620; Q9967; S0028; J7030

== ENCOUNTER 2019-11-12 17:48 | Emergency (ER) | payer MEDICAID ==
[~2019-11-12 17:48] MED LIST changes: +ALBU2.5V8 IH; +ALBU2.5V8 INH; -ALBU8.5H8 IH; +HYDR-3165 PO; -HYDR-971 PO; +PRED20TA PO
[2019-11-12] MEDS: IV RINGERS SOLUTION,LACTATED 1,000 ML IV SCH (18:19)
[2019-11-12] MEDS: ONDANSETRON PF 4 MG/2 ML VIAL. IVP ONE (18:30)
[2019-11-12 18:47] LABS: BASO # 0.1 x10^3/uL (0.0-0.2); BASO % 1 % (0-3); EOS # 0.4 x10^3/uL (0.0-0.7); EOS % 5 % (0-3); HEMATOCRIT 40.2 % (36.0-47.0); HEMOGLOBIN 13.5 g/dL (12.0-15.5); LYMPH # 2.5 x10^3/uL (1.0-4.8); LYMPH % 27 % (24-48); MEAN CORPUSCULAR HEMOGLOBIN 28 pg (25-35); MEAN CORPUSCULAR HGB CONC 34 g/dL (31-37); MEAN CORPUSCULAR VOLUME 84 fL (79-100); MONO # 0.7 x10^3/uL (0.0-1.1); MONO % 8 % (0-9); NEUT # 5.4 x10^3uL (1.8-7.7); NEUT % 59 % (31-73); PLATELET COUNT 254 x10^3/uL (140-400); RED CELL DISTRIBUTION WIDTH 13.4 % (11.5-14.5); WHITE BLOOD COUNT 9.1 x10^3/uL (4.0-11.0)
[2019-11-12 18:55] LABS: BILIRUBIN,URINE NEG (NEG); CLARITY,URINE CLOUDY; COLOR,URINE YELLOW; GLUCOSE,URINE NEG (NEG)
[2019-11-12 18:56] LABS: BACTERIA,URINE MOD /HPF (0-FEW); NITRITE,URINE NEG (NEG); RBC,URINE 0 /HPF (0-2); SQUAMOUS EPITHELIAL CELL,UR MOD /LPF; UROBILINOGEN,URINE 0.2 mg/dL (0.2 mg/dL)
[2019-11-12 18:58] LABS: CALCIUM 8.7 mg/dL (8.5-10.1); CREATININE 0.5 mg/dL (0.6-1.0); GFR 151.6; POTASSIUM 4.1 mmol/L (3.5-5.1)
[2019-11-12 19:03] LABS: BARBITURATES NEG (NEG); BENZODIAZEPINES NEG (NEG); CANNABINOIDS NEG (NEG); COCAINE NEG (NEG); METHADONE NEG (NEG); OPIATES NEG (NEG); PHENCYCLIDINE NEG (NEG)
[2019-11-12 19:03] LABS: ALBUMIN 3.1 g/dL (3.4-5.0); DIRECT BILIRUBIN 0.1 mg/dL (0.0-0.2); TOTAL BILIRUBIN 0.1 mg/dL (0.2-1.0); TOTAL PROTEIN 6.9 g/dL (6.4-8.2)
[2019-11-12 19:04] LABS: AMPHETAMINE/METHAMPHETAMINE NEG (NEG)
[2019-11-12] MEDS: FAMOTIDINE 20 MG/2 ML VIAL IVP ONE (20:09)
--- NOTE | 2019-11-12 20:36 | PHYS DOC ---
Past History Past Medical History: Asthma Past Surgical History: No Surgical History Smoking: Less than 1pk/day Alcohol Use: None Drug Use: None Adult General Chief Complaint Chief Complaint: ABDOMINAL PAIN IN .. " I am having some cramping and vaginal spotting..>" [facility] HPI Patient is a 23 year old female who presents with above complaints of abd. cramping with bleeding. Patient is estimated 14 weeks gravid. Patient denies a ny vaginal discharge. Patient has had prior episode of chlamydia and gonorrhea. Has had 8 lifetime sex partners. She is gravid 6 term 4, and miscarry x 1. Patient follows [facility] with a finish filer. Patient denies any travel. Patient denies any trauma. Patient denies immunosuppression. Patient does smoke. Patient has been taking vitamins. Review of Systems Review of Systems Constitutional: Denies fever or chills [] Eyes: Denies change in visual acuity, redness, or eye pain [] HENT: Denies nasal congestion or sore throat [] Respiratory: Denies cough or shortness of breath [] Cardiovascular: No additional information not addressed in HPI [] GI: Complaints of abdominal pain nausea and vaginal spotting. Patient denies vomiting, bloody stools or diarrhea [] : Denies dysuria or hematuria [] Musculoskeletal: Denies back pain or joint pain [] Integument: Denies rash or skin lesions [] Neurologic: Denies headache, focal weakness or sensory changes [] Endocrine: Denies polyuria or polydipsia [] All other systems were reviewed and found to be within normal limits, except as documented in this note. Family History Family History Noncontributory Current Medications Current Medications Current Medications Medications (Trade) Dose Ordered Sig/Len Start Time Stop Time Status Last Admin Dose Admin Famotidine (Pepcid Vial) 20 mg 1X ONCE 11/12/19 18:30 11/12/19 18:31 DC 11/12/19 20:09 20 MG Lactated Ringer's 1,000 ml @ 1,000 mls/hr Q1H 11/12/19 18:19 11/12/19 19:18 DC 11/12/19 18:19 1,000 MLS/HR Ondansetron HCl (Zofran) 8 mg 1X ONCE 11/12/19 18:30 11/12/19 18:31 DC Allergies Allergies Allergies Coded Allergies Type Severity Reaction Last Updated Verified shrimp Allergy Severe Hives 12/27/15 Yes Physical Exam Physical Exam Constitutional: no acute distress, non-toxic appearance. [] HENT: Normocephalic, atraumatic, bilateral external ears normal, oropharynx moist, no oral exudates, nose normal. [] Eyes: PERRLA, EOMI, conjunctiva normal, no discharge. [] Neck: Normal range of motion, no tenderness, supple, no stridor. [] Cardiovascular:Heart rate regular rhythm, no murmur [] Lungs & Thorax: Bilateral breath sounds with scattered wheezes. On Auscultation [] Abdomen: Bowel sounds normal, soft, no tenderness, no masses, no pulsatile masses. []Vaginal exam shows some very slight spotting from os. Mild discharge. No cervical motion tenderness. Rectal nontender Skin: Warm, dry, no erythema, no rash. [] Back: No tenderness, no CVA tenderness. [] Extremities: No tenderness, no cyanosis, no clubbing, ROM intact, no edema. [] Neurologic: Alert and oriented X 3, normal motor function, normal sensory function, no focal deficits noted. []DTR +2 patella and brachial. Psychologic: Affect anxious, judgement normal, mood normal. [] Current Patient Data Vital Signs Vital Signs Date Time Temp Pulse Resp B/P (MAP) Pulse Ox O2 Delivery O2 Flow Rate FiO2 11/12/19 18:47 84 18 98 Room Air Lab Results Laboratory Tests Test 11/12/19 18:05 11/12/19 18:20 11/12/19 18:37 Urine Collection Type Unknown Urine Color Yellow Urine Clarity Cloudy Urine pH 7.0 Urine Specific Purcell 1.025 Urine Protein Neg (NEG-TRACE) Urine Glucose (UA) Neg mg/dL (NEG) Urine Ketones (Stick) Neg mg/dL (NEG) Urine Blood Neg (NEG) Urine Nitrite Neg (NEG) Urine Bilirubin Neg (NEG) Urine Urobilinogen Dipstick 0.2 mg/dL (0.2 mg/dL) Urine Leukocyte Esterase Mod (NEG) Urine RBC 0 /HPF (0-2) Urine WBC 11-20 /HPF (0-4) Urine Squamous Epithelial Cells Mod /LPF Urine Bacteria Mod /HPF (0-FEW) Urine Mucus Marked /LPF Urine Opiates Screen Neg (NEG) Urine Methadone Screen Neg (NEG) Urine Barbiturates Neg (NEG) Urine Phencyclidine Screen Neg (NEG) Urine Amphetamine/Methamphetamine Neg (NEG) Urine Benzodiazepines Screen Neg (NEG) Urine Cocaine Screen Neg (NEG) Urine Cannabinoids Screen Neg (NEG) Urine Ethyl Alcohol Neg (NEG) White Blood Count 9.1 x10^3/uL (4.0-11.0) Red Blood Count 4.80 x10^6/uL (3.50-5.40) Hemoglobin 13.5 g/dL (12.0-15.5) Hematocrit 40.2 % (36.0-47.0) Mean Corpuscular Volume 84 fL (79-100) Mean Corpuscular Hemoglobin 28 pg (25-35) Mean Corpuscular Hemoglobin Concent 34 g/dL (31-37) Red Cell Distribution Width 13.4 % (11.5-14.5) Platelet Count 254 x10^3/uL (140-400) Neutrophils (%) (Auto) 59 % (31-73) Lymphocytes (%) (Auto) 27 % (24-48) Monocytes (%) (Auto) 8 % (0-9) Eosinophils (%) (Auto) 5 % (0-3) H Basophils (%) (Auto) 1 % (0-3) Neutrophils # (Auto) 5.4 x10^3uL (1.8-7.7) Lymphocytes # (Auto) 2.5 x10^3/uL (1.0-4.8) Monocytes # (Auto) 0.7 x10^3/uL (0.0-1.1) Eosinophils # (Auto) 0.4 x10^3/uL (0.0-0.7) Basophils # (Auto) 0.1 x10^3/uL (0.0-0.2) Prothrombin Time < 9.3 SEC (9.4-11.4) L Prothrombin Time INR 0.9 (0.9-1.1) Activated Partial Thromboplast Time 26 SEC (23-33) Maternal Serum HCG Beta Subunit 32627 mIU/mL (0-6) H Sodium Level 139 mmol/L (136-145) Potassium Level 4.1 mmol/L (3.5-5.1) Chloride Level 104 mmol/L (98-107) Carbon Dioxide Level 25 mmol/L (21-32) Anion Gap 10 (6-14) Blood Urea Nitrogen 9 mg/dL (7-20) Creatinine 0.5 mg/dL (0.6-1.0) L Estimated GFR (Cockcroft-Gault) 151.6 Glucose Level 76 mg/dL (70-99) Calcium Level 8.7 mg/dL (8.5-10.1) Total Bilirubin 0.1 mg/dL (0.2-1.0) L Direct Bilirubin 0.1 mg/dL (0.0-0.2) Aspartate Amino Transferase (AST) 18 U/L (15-37) Alanine Aminotransferase (ALT) 24 U/L (14-59) Alkaline Phosphatase 71 U/L (46-116) Total Protein 6.9 g/dL (6.4-8.2) Albumin 3.1 g/dL (3.4-5.0) L Lipase 152 U/L (73-393) POC Urine HCG, Qualitative hcg positive (Negative) Microbiology 11/12/19 Wet Prep - Final, Complete EKG EKG [] Radiology/Procedures Radiology/Procedures [][place] [address] IMAGING REPORT Signed PATIENT: YELENA CLEANING LACCOUNT: [id number] : 1995 LOCATION: ER AGE: 23 SEX: F EXAM STATUS: REG ER ORD. PHYSICIAN: YAZMIN WISEMAN MD REASON: pain, bleeding JAIME AWARE @ PROCEDURE: OB LIMITED Examination: OB LIMITED History: Pain and bleeding Comparison/Correlation: None Findings: Limited OB ultrasound exam was performed. Single intrauterine gestation is present with heart rate of 150 beats present. motion and cardiac activity noted. Cephalic lie evident. Within the uterine cavity at the uterine fundus, linear echogenicity is present raises question of synechiae or amniotic band. Biparietal diameter is 2.5 cm corresponding to 14 weeks 2 days. Head circumference is 9.8 cm corresponding to 14 weeks 4 days. Abdominal circumference is 8.11 cm corresponding to 14 weeks 3 days. Femur length is 1.6 cm corresponding to 15 weeks 0 day. HC/AC ratio is 1.21. Average ultrasound age is 14 weeks 4 days. Ultrasound EDC is 05/08/2020. Cervical length is 17.3 center. Fluid within uterine cervix noted. Anterior location of the placenta is present. It is low lying in appearance. Impression: Single living intrauterine gestation with cephalic lie is of 14 weeks 4 days ultrasound age. Amniotic band or synechiae appear to be present. Fluid is present in the uterine cervix and of indeterminate significance. Anterior low-lying placenta evident. Follow-up assessment should be considered. Electronically signed by: Alban Marie MD (11/12/2019 10:15 PM) [facility] DICTATED AND SIGNED BY: ALBAN MARIE MD DATE: 11/12/19 2631 CC: YAZMIN WISEMAN MD; PCP,NO ~ Course & Med Decision Making Course & Med Decision Making Pertinent Labs and Imaging studies reviewed. (See chart for details) Follow-up pending cultures. Patient take Keflex 500 mg 3 times a day. Patient follow-up with her finish filer at [facility]. Patient continue vitamins. Impression- 1. Abdomen pain IUP 14 weeks4 days 2. Threaten 3. Bacterial vaginosis 4. Blood type O+ 5. Beta hCG is 63,441 6. UTI [] Dragon Disclaimer Dragon Disclaimer This electronic medical record was generated, in whole or in part, using a voice recognition dictation system. Departure Departure: Disposition: 01 HOME/RESIDENCE PRIOR TO ADM Condition: STABLE Referrals: PCPMERNA (PCP) Scripts Cephalexin (KEFLEX) 500 Mg Capsule 500 MG PO TID for UTI, Bacterial Vaginosis for 7 Days, BOTTLE Prov: YAZMIN WISEMAN MD 11/12/19 Dragon Disclaimer This chart was dictated in whole or in part using Voice Recognition software in a busy, high-work load, and often noisy Emergency Department environment. It may contain unintended and wholly unrecognized errors or omissions. Dragon Disclaimer This chart was dictated in whole or in part using Voice Recognition software in a busy, high-work load, and often noisy Emergency Department environment. It may contain unintended and wholly unrecognized errors or omissions. YAZMIN WISEMAN MD Nov 12, 2019 20:36
[2019-11-12 21:27] VITALS: BP 115/82
--- NOTE | 2019-11-12 22:18 | RAD ---
Examination: OB LIMITED History: Pain and bleeding Comparison/Correlation: None Findings: Limited OB ultrasound exam was performed. Single intrauterine gestation is present with heart rate of 150 beats present. motion and cardiac activity noted. Cephalic lie evident. Within the uterine cavity at the uterine fundus, linear echogenicity is present raises question of synechiae or amniotic band. Biparietal diameter is 2.5 cm corresponding to 14 weeks 2 days. Head circumference is 9.8 cm corresponding to 14 weeks 4 days. Abdominal circumference is 8.11 cm corresponding to 14 weeks 3 days. Femur length is 1.6 cm corresponding to 15 weeks 0 day. HC/AC ratio is 1.21. Average ultrasound age is 14 weeks 4 days. Ultrasound EDC is 05/08/2020. Cervical length is 17.3 center. Fluid within uterine cervix noted. Anterior location of the placenta is present. It is low lying in appearance. Impression: Single living intrauterine gestation with cephalic lie is of 14 weeks 4 days ultrasound age. Amniotic band or synechiae appear to be present. Fluid is present in the uterine cervix and of indeterminate significance. Anterior low-lying placenta evident. Follow-up assessment should be considered. Electronically signed by: Alban Cervantes MD (11/12/2019 10:15 PM) [facility]
[2019-11-12] MEDS ORDERED: CEPH-264 PO (23:51)
[2019-11-13] MEDS: CEPHALEXIN 250 MG CAPSULE PO ONE (00:03)
[2019-11-14 20:07] LABS: CHLAMYDIA PROBE Negative (Negative)
== END 2019-11-13 00:14 | disposition home or self-care (01) ==
LOC: ER 17:48
DX: O20.0 Threatened abortion (principal); O23.592 Infection of other part of genital tract in pregnancy, second trimester; B96.89 Other specified bacterial agents as the cause of diseases classified elsewhere; O23.42 Unspecified infection of urinary tract in pregnancy, second trimester; O99.512 Diseases of the respiratory system complicating pregnancy, second trimester; J45.909 Unspecified asthma, uncomplicated; O99.332 Smoking (tobacco) complicating pregnancy, second trimester; Z3A.14 14 weeks gestation of pregnancy; Z91.013 Allergy to seafood
CPT/HCPCS: 36415; 76815; 80048; 80076; 80307; 81001; 81025; 83690; 84702; 85025; 85610; 85730; 86592; 86705; 86709; 86803; 86900; 86901; 87086; 87340; 87491; 87591; 96374; 99285; J3490; J7120; Q0111

== ENCOUNTER 2021-01-18 17:17 | Emergency (ER) | payer MEDICAID ==
[~2021-01-18] VITALS: Ht 165.1 cm; Wt 88.3 kg
[2021-01-18 17:17] VITALS: BP 129/81
--- NOTE | 2021-01-18 17:23 | PHYS DOC ---
Past History Past Medical History: Asthma (TRISHA PARIKH APRN) Past Surgical History: No Surgical History (TRISHA PARIKH APRN) Smoking: Less than 1pk/day Alcohol Use: None Drug Use: None (TRISHA PARIKH APRN) Adult General HPI HPI Patient is a 25-year-old female presents to the emergency department requesting stronger pain medicine than Tylenol or Motrin for her dental pain. Patient states she has had dental pain off and on for several months or longer, states she has a hole in her tooth and other teeth that are broken, patient states that she has a dentist to see on Wednesday. Patient states that she has taken Tylenol and Motrin without relief in pain. Patient denies headaches, chest congestion, nasal congestion, throat pain, numbness or tingling to her face or mouth, dizziness, chest pain, shortness of breath. She denies nausea vomiting or diarrhea. Patient denies any other physical complaints or physical concerns. Patient states she is only allergic to shrimp, has no allergies to medications. Patient states she does not take any prescription medications at home. Patient reports her last menstrual cycle was 03 January. (TRISHA PARIKH APRN) Review of Systems Review of Systems 14 body systems of review of systems have been reviewed. See HPI for pertinent positives and negative responses, otherwise all other systems are negative, nonpertinent or noncontributory. (TRISHA PARIKH APRN) Allergies Allergies Allergies Coded Allergies Type Severity Reaction Last Updated Verified shrimp Allergy Severe Hives 12/27/15 Yes (TRISHA PARIKH APRN) Physical Exam Physical Exam Constitutional: Well developed, well nourished, no acute distress, non-toxic appearance. 25-year-old female no apparent distress. HENT: Normocephalic, atraumatic, bilateral external ears normal, oropharynx moist, no oral exudates, nose normal. Oropharynx moist, pink, no infectious process appreciated, marked dental caries, complaint tooth with cavity, no purulence appreciated, no gum swelling appreciated, pulp exposed, patient has broken teeth and other teeth with various stages of decay. No decreased sensation to the face or oral cavity. No trismus appreciated, no drooling appreciated. Eyes: PERRLA, EOMI, conjunctiva normal, no discharge. Neck: Normal range of motion, no tenderness, supple, no stridor. No midline spinal tenderness, no meningismus signs, no nuchal rigidity. Cardiovascular: No cyanosis of the asked remedies, distal cap refill less than 2 seconds. Lungs & Thorax: Patient is in no respiratory distress. No audible adventitious lung sounds appreciated. Skin: No visible skin rash appreciated. Extremities: Patient moving all extremities, normal gait. Neurologic: Alert and oriented X 3, normal motor function, normal sensory function, no focal deficits noted. Psychologic: Affect normal, judgement normal, mood normal. (TRISHA PARIKH APRN) EKG EKG [] (TRISHA PARIKH APRN) Radiology/Procedures Radiology/Procedures [] (TRISHA PARIKH APRN) Heart Score C/O Chest Pain: No Risk Factors: Risk Factors: DM, Current or recent (<one month) smoker, HTN, HLP, family history of CAD, obesity. Risk Scores: Risk Factors: DM, Current or recent (<one month) smoker, HTN, HLP, family history of CAD, obesity. (TRISHA PARIKH APRN) Course & Med Decision Making Course & Med Decision Making Pertinent Labs and Imaging studies reviewed. (See chart for details) 25-year-old female, vital signs reviewed, presents emergency department complaint of dental pain. Patient states she has a appointment on Wednesday with an oral surgeon to have her tooth extracted. Physical examination showed marked dental caries, no purulence from complaint tooth, no gum swelling around complaint tooth. Will start patient on Augmentin twice daily x10 days, 600 mg ibuprofen, Peridex swish and spit. Discussed with patient findings, antibiotic/pain medication/Peridex mouthwash use, patient gave verbal understanding of discharge home instructions, will keep appointment with oral surgeon on Wednesday, see primary care physician for ongoing dental pain, return to emergency department for worsening symptoms or other concerns. (TRISHA PARIKH APRN) Course & Med Decision Making I oversaw on the above date of service of this patient and discussed the care with the MITER CUTTER. I agree with the findings, plan of care, and disposition as docum ented. Electronically signed, Claritza Schmitt DO (CLARITZA SCHMITT DO) Jo Ann Disclaimer Dragon Disclaimer This electronic medical record was generated, in whole or in part, using a voice recognition dictation system. (TRISHA PARIKH APRN) Departure Departure: Impression: Primary Impression: Dental caries Additional Impression: Pulpitis Disposition: 01 DC HOME SELF CARE/HOMELESS Condition: GOOD Referrals: PCP,MERNA (PCP) KIM CHARLES Patient Instructions: Dental Caries Additional Instructions: Please take medications as prescribed, I have given you a follow-up physician to use in the event that you are unable to see your own primary care physician, please keep your appointment with your oral surgeon to have your tooth extracted Wednesday. Return to the emergency department for worsening symptoms or other concerns. EMERGENCY DEPARTMENT GENERAL DISCHARGE INSTRUCTIONS Thank you for coming to [facility] (ED) today and trusting us with you care. We trust that you had a positivie experience in our Emergency Department. If you wish to speak to the department management, you may call the director at [phone]. YOUR FOLLOW UP INSTRUCTIONS ARE FOLLOWS: 1. Do you have a private Doctor? If you do not have a private doctor, please ask for a resource list of physicians or clinics that may be able to assist you with follow up care. 2. The Emergency Physician has interpreted your x-rays. The X-Ray specialist will also review them. If there is a change in the findings, you will be notified in 48 hours when at all possible. 3. A lab test or culture has been done, your results will be reviewed and you will be notified if you need a change in treatment. ADDITIONAL INSTRUCTIONS AND INFORMATION: 1. Your care today has been supervised by a physician who is specially trained in emergency care. Many problems require more than one evaluation for a complete diagnosis and treatment. We recommend that you schedule your follow up appointment as recommended to ensure complete treatment of you illness or injury. If you are unable to obtain follow up care and continue to have a problem, or if your condition worsens, we recommend that you return to the ED. 2. We are not able to safely determine your condition over the phone nor are we able to give sound medical advice over the phone. For these safety reasons, if you call for medical advice we will ask you to come to the ED for further evaluation. 3. If you have any questions regarding these discharge instructions please call the ED at [phone]. SAFETY INFORMATION: In the interest of safety, wellness, and injury prevention; we encourage you to wear your sealbelt, if you smoke; quite smoking, and we encourage family to use a protective helmet for bicycling and other sporting events that present an increased risk for head injury. IF YOUR SYMPTOMS WORSEN OR NEW SYMPTOMS DEVELOP, OR YOU HAVE CONCERNS ABOUT YOUR CONDITION; OR IF YOUR CONDITION WORSENS WHILE YOU ARE WAITING FOR YOUR FOLLOW UP APPOINTMENT; EITHER CONTACT YOUR PRIMARY CARE DOCTOR, THE PHYSICIAN WHOSE NAME AND NUMBER YOU WERE GIVEN, OR RETURN TO THE ED IMMEDIATELY. Scripts Chlorhexidine Gluconate (PERIDEX) 15 Ml Mouthwash 15-30 ML PO TID for DENTAL INFECTION for 8 Days, #473 ML 0 Refills Swish and spit 1 to 2 tablespoons 3 times a day. Prov: TRISHA PARIKH APRN 01/18/21 Ibuprofen (IBUPROFEN) 600 Mg Tablet 600 MG PO TID PRN PRN for PAIN, #20 TAB 0 Refills Prov: TRISHA PARIKH APRN 01/18/21 Amoxicillin/Potassium Clav (AUGMENTIN 875-125 TABLET) 1 Each Tablet 1 TAB PO BID for DENTAL INFECTION for 10 Days, #20 TAB 0 Refills Prov: TRISHA PARIKH APRN 01/18/21 Problem Qualifiers TRISHA PARIKH APRN Jan 18, 2021 17:23 CLARITZA SCHMITT DO Jan 19, 2021 06:33
[2021-01-18] MEDS ORDERED: CHLO15MO2 PO (17:54)
[2021-01-18] MEDS ORDERED: AMOX1TAB61 PO (17:54)
[2021-01-18] MEDS ORDERED: IBUP600T16 PO (17:54)
== END 2021-01-18 18:00 | disposition home or self-care (01) ==
LOC: ER 17:17
DX: K02.9 Dental caries, unspecified (principal); K04.01 Reversible pulpitis; R60.0 Localized edema; J45.909 Unspecified asthma, uncomplicated; F17.200 Nicotine dependence, unspecified, uncomplicated; Z91.013 Allergy to seafood
CPT/HCPCS: 99283

== ENCOUNTER 2021-06-02 09:21 | Emergency (ER) | payer MEDICAID ==
[~2021-06-02] VITALS: Ht 165.1 cm; Wt 88.3 kg
[~2021-06-02 09:21] MED LIST changes: +AMOX1TAB61 PO; +CHLO15MO2 PO; +IBUP600T16 PO
[2021-06-02 09:32] VITALS: BP 127/75
--- NOTE | 2021-06-02 09:57 | PHYS DOC ---
Past History Past Medical History: Asthma Past Surgical History: No Surgical History Smoking: Less than 1pk/day Additional Smoking Information: vape Alcohol Use: None Drug Use: None General Adult EDM: Chief Complaint: VAGINAL BLEEDING HPI: HPI: Patient is a 25-year-old female coming in for vaginal bleeding. Patient states the bleeding started 2 to 3 days ago and has had some cramping. No bright red blood such as dark with clots. Patient states that 3 days ago she took a test and thought he might of had a faint line on it. Patient was LMP 72 Review of Systems: Review of Systems: All other systems within normal limits except for as noted in the HPI Allergies: Allergies: Allergies Coded Allergies Type Severity Reaction Last Updated Verified shrimp Allergy Severe Hives 12/27/15 Yes Physical Exam: PE: Constitutional: Well developed, well nourished, no acute distress, non-toxic appearance. [] HENT: Normocephalic, atraumatic, bilateral external ears normal, nose normal. [] Eyes: PERRLA, conjunctiva normal, no discharge. [] Neck: No rigidity, supple, no stridor. [] Cardiovascular: Regular rate and rhythm, brisk cap refill [] Lungs & Thorax: Non labored symmetric respirations, no tachypnea or respiratory distress [] Abdomen: Soft, nondistended, no tenderness palpation. Skin: Warm, dry, no erythema, no rash. [] Back: Unremarkable Extremities: No deformities, range of motion grossly intact, no lower extremity edema [] Neurologic: Alert and oriented X 3, no focal deficits noted. [] Psychologic: Affect normal, judgement normal, mood normal. [] Current Patient Data: Labs: Laboratory Tests Test 06/02/21 09:48 POC Urine HCG, Qualitative hcg negative (Negative) Vital Signs: Vital Signs Date Time Temp Pulse Resp B/P (MAP) Pulse Ox O2 Delivery O2 Flow Rate FiO2 06/02/21 09:32 98.0 80 16 127/75 99 Room Air EKG: EKG: [] Radiology/Procedures: Radiology/Procedures: [] Heart Score: C/O Chest Pain: No Risk Factors: Risk Factors: DM, Current or recent (<one month) smoker, HTN, HLP, family history of CAD, obesity. Risk Scores: Score 0 - 3: 2.5% MACE over next 6 weeks - Discharge Home Score 4 - 6: 20.3% MACE over next 6 weeks - Admit for Clinical Observation Score 7 - 10: 72.7% MACE over next 6 weeks - Early Invasive Strategies Course & Med Decision Making: Course & Med Decision Making Pertinent Labs and Imaging studies reviewed. (See chart for details) [] Dragon Disclaimer: Dragon Disclaimer: This electronic medical record was generated, in whole or in part, using a voice recognition dictation system. Departure Departure: Impression: Primary Impression: Vaginal bleeding Referrals: PCP,MERNA (PCP) Patient Instructions: Medical Screening Exam KEO ARNOLD MD Jun 02, 2021 09:57
[2021-06-02 10:00] LABS: BILIRUBIN,URINE NEG (NEG); CLARITY,URINE HAZY; COLOR,URINE YELLOW; GLUCOSE,URINE NEG (NEG); NITRITE,URINE NEG (NEG); RBC,URINE TNTC /HPF (0-2); UROBILINOGEN,URINE 0.2 mg/dL (0.2 mg/dL); WBC,URINE 0 /HPF (0-4)
[2021-06-02 10:01] LABS: BACTERIA,URINE 0 /HPF (0-FEW)
== END 2021-06-02 10:03 | disposition home or self-care (01) ==
LOC: ER 09:21
DX: N93.9 Abnormal uterine and vaginal bleeding, unspecified (principal); J45.909 Unspecified asthma, uncomplicated; F17.200 Nicotine dependence, unspecified, uncomplicated; Z91.013 Allergy to seafood
CPT/HCPCS: 81001; 81025; 99283